=== PATIENT | female | born 1960 | race Caucasian/White ===

== ENCOUNTER 2023-09-19 09:59 | Outpatient (OUT) | payer OTHER, SELFPAY ==
--- NOTE | 2023-09-19 10:06 | MM_ITS ---
Patient Name: ORTEGA BACON MR#: [id number] : 1960 Exam Date: 09/19/2023 Ordering Doctor: DR DR OWENS RAD[facility]OLOG[facility] REPORT PROCEDURE: MM TOMOSYNTHESIS SCREENING BI COMPARISON: MG MAMM SCREEN 3D NORBERTO CAD, 05/24/2021. MG MAMM SCREEN 3D NORBERTO CAD, 07/17/2022. INDICATIONS: Screening Calculator Name NCI Breast Cancer Risk Assessment Tool 5 Year Breast Cancer Risk 4.40% Lifetime Breast Cancer Risk 19.60% Personal Breast Cancer No Personal Ovarian Cancer No Treatments None Family Cancers Mother with breast cancer at age 83. LOCATION: [facility] BREAST COMPOSITION: Heterogeneously dense,which may obscure small masses. FINDINGS: DIAGNOSTIC CATEGORY 2--BENIGN FINDING: Scattered benign-appearing calcifications are present. Scattered benign-appearing lymph nodes are present. RIGHT BREAST: No significant suspicious finding. LEFT BREAST: No significant suspicious finding. RECOMMENDATIONS: ROUTINE MAMMOGRAM AND CLINICAL EVALUATION IN 12 MONTHS. PLEASE NOTE: A NORMAL MAMMOGRAM DOES NOT EXCLUDE THE POSSIBILITY OF BREAST CANCER. A CLINICALLY SUSPICIOUS PALPABLE LUMP SHOULD BE BIOPSIED. Dictated by: Boyd Dubon MD on 09/19/2023 at 12:23 Approved by: Boyd Dubon MD on 09/19/2023 at 12:24
== END 2023-09-19 10:00 | disposition home or self-care (01) ==
LOC: MAMMO 09:59
DX: Z12.31 Encounter for screening mammogram for malignant neoplasm of breast (principal); Z80.3 Family history of malignant neoplasm of breast
CPT/HCPCS: 77063; 77067

== ENCOUNTER 2024-09-24 12:43 | Outpatient (OUT) | payer OTHER, SELFPAY ==
--- NOTE | 2024-09-24 12:46 | MM_ITS ---
Patient Name: ORTEGA BACON MR#: [id number] : 1960 Exam Date: 09/24/2024 Ordering Doctor: DR DR OWENS RADIOLOGY REPORT PROCEDURE: MM TOMOSYNTHESIS SCREENING BI COMPARISON: MM TOMOSYNTHESIS SCREENING BI, 09/19/2023. MG MAMM SCREEN 3D NORBERTO CAD, 07/17/2022. MG MAMM SCREEN 3D NORBERTO CAD, 05/24/2021. MG MAMM SCREEN NORBERTO W CAD, 05/20/2020. INDICATIONS: Screening Calculator Name NCI Breast Cancer Risk Assessment Tool 5 Year Breast Cancer Risk 4.50% Lifetime Breast Cancer Risk 19.00% Personal Breast Cancer No Personal Ovarian Cancer No Treatments None Family Cancers Mother with breast cancer at age 83. LOCATION: [facility] BREAST COMPOSITION: The breasts are heterogeneously dense,which may obscure small masses. FINDINGS: RIGHT BREAST: No significant suspicious finding. LEFT BREAST: No significant suspicious finding. DIAGNOSTIC CATEGORY 1--NEGATIVE. RECOMMENDATIONS: ROUTINE MAMMOGRAM AND CLINICAL EVALUATION IN 12 MONTHS. PLEASE NOTE: A NORMAL MAMMOGRAM DOES NOT EXCLUDE THE POSSIBILITY OF BREAST CANCER. A CLINICALLY SUSPICIOUS PALPABLE LUMP SHOULD BE BIOPSIED. Dictated by: Flynn Rosa DO on 09/25/2024 at 15:34 Approved by: Flynn Rosa DO on 09/25/2024 at 15:37
== END 2024-09-24 12:44 | disposition home or self-care (01) ==
LOC: MAMMO 12:43
DX: Z12.31 Encounter for screening mammogram for malignant neoplasm of breast (principal); Z80.3 Family history of malignant neoplasm of breast
CPT/HCPCS: 77063; 77067

== ENCOUNTER 2025-05-04 16:21 | Emergency (ER) | payer OTHER, SELFPAY ==
[2025-05-04 16:38] VITALS: BP 154/85; PULSE 64; TEMP 36.5; O2SAT 100; BMI 28.0
--- NOTE | 2025-05-04 16:57 | PC.NURSE ---
PT C/O ACUTE ON CHRONIC BACK PAIN. PT STATES NOTHING HELPS.PT HAS TRIED BIOFREEZE AND TYLENOL BUT HAS NOT TAKEN ANYTHING IN 3 DAYS. PT HAS STRONG STEADY GAIT TO ROOM 4
--- OUTSIDE RECORDS SUMMARY | 2025-05-04 17:09 | XMS_ITS | Clinical Summary ---
Author Organization [facility] Address [address] [place] [address] Care Team Providers Care Chalker Soles Name Role Phone Imelda Lyons MD Primary Care Provider + [phone] Allergies No known active allergies Medications MedicationSigDispense QuantityRefillsLast FilledStart DateEnd DateStatus eletriptan (Relpax) 20 MG tablet Take 20 mg by mouth01/04/2024ctive PARoxetine (Paxil) 20 MG tablet Take 20 mg by mouth01/23/2024ctive omeprazole (PriLOSEC) [address] capsule Take 20 mg by mouth in the morning. Take before meals. Do not crush or chew.. Active Active Problems ProblemNoted DateDiagnosed DateColon cancer ijpoajunm79/05/2024Gastroesophageal reflux vanevyq4105/06/2024 Family History Medical HistoryRelationNameCommentsAneurysmFatherBreast cancerMotherRelationName StatusCommentsBrother 1AliveBrother 2AliveBrother 3AliveFatherDeceasedMother DeceasedSister 1AliveSister 2Alive Social History Tobacco UseTypesPacks/DayYears UsedDateSmoking Tobacco: NeverSmokeless Tobacco: Never Tobacco Cessation:Counseling Given: Not Answered Alcohol UseStandard Drinks/WeekCommentsNever0 (1 standard drink = 0.6 oz pure alcohol)CommentsUnknownSex and Gender InformationValueDate RecordedSex Assigned at BirthNot on fileLegal TdlJydqge48/15/2023 6:33 PM EDTGender Identity Not on fileSexual OrientationNot on file Last Filed Vital Signs Vital SignReadingTime TakenCommentsBlood Qxxbvykb337/8511 2:01 PM EST Pulse--Temperature--Respiratory Rate--Oxygen Saturation--Inhaled Oxygen Concentration--Drdsyr17.1 kg (148 lb)05/06/2024 2:01 PM DYOUebpzx080.9 cm (5' 1 )05/06/2024 2:01 PM ESTBody Mass Index27.9605/06/2024 2:01 PM EST Plan of Treatment Health MaintenanceDue DateLast DoneCommentsCT Jmlhoidadyxu02/01/1962FIT-DNA 1960FIT1960FOBT1960 4998Qgosmbkziabdx41/01/1962MMR Vaccines (1 of 1 - Standard series)1962DTaP/Tdap/Td Vaccines (1 - Tdap)1968Pap Smear 1982Cervical Cancer Owtgcsuwy05/01/1992HPV/Lpdmxx5610/31/1991Mammogram , 12/14/2016, 05/13/2014COVID-19 Vaccine ( season)501/01/2022, 09/13/2020, 08/23/2020Influenza Vaccine (#1) /, 04/01/2022, 05/09/2021, Additional history exists Eucftuowini84/16/203501/olorectal Cancer Tqnvmjqgs67/16/2035HIB Vaccines Aged OutNo longer eligible based on patient's age to complete this topicHPV VaccinesAged OutNo longer eligible based on patient's age to complete this topic Hepatitis A VaccinesAged OutNo longer eligible based on patient's age to complete this topicHepatitis B VaccinesAged OutNo longer eligible based on patient's age to complete this topicIPV VaccinesAged OutNo longer eligible based on patient's age to complete this topicMeningococcal B VaccineAged OutNo longer eligible based on patient's age to complete this topicMeningococcal VaccineAged OutNo longer eligible based on patient's age to complete this topicPneumococcal Vaccine: Pediatrics (0 to 5 Years) and At-Risk Patients (6 to 64 Years)Aged Out No longer eligible based on patient's age to complete this topicRotavirus VaccinesAged OutNo longer eligible based on patient's age to complete this topic Procedures Procedure NamePriorityDate/TimeAssociated DiagnosisCommentsCOLONOSCOPYRoutine 07/17/2024 10:07 AM ESTfrom Last 3 Months or Most Recently Relevant to Health Maintenance Results * Colonoscopy (07/17/2024 10:07 AM EST)Anatomical RegionLateralityModality Endoscopy Narrative Authorizing ProviderResult TypeResult StatusAlbert Yoshi Peres MDENDOSCOPY PROCEDURE ORDERABLESFinal Result from Last 3 Months or Most Recently Relevant to Health Maintenance Insurance * Guarantor: Maryam Rizzo TypeRelation to PatientDate of BirthPhone Billing AddressPersonal/RpiknsHzva43/01/1961 [address] [address] Care Teams Team MemberRelationshipSpecialtyStart DateEnd Date Imelda Lyons MD [address] [place] [address] PCP - GeneralFamily Medicine03/17/24
--- NOTE | 2025-05-04 17:27 | XR_ITS ---
[address] [address] Patient Name: ORTEGA BACON MRN: [facility]:[id number] date: 1960 Sex: F Assigned Patient Location: ED.MAIN Current Patient Location: ED.MAIN Accession/Order Number: [id number] Exam Date: 05/04/2025 17:47 Report Date: 05/04/2025 18:44 At the request of: KIRK CRAIG Procedure: XR lumbar spine 2-3V 2 views lumbar spine HISTORY: Back pain with leg spasms for 3 days Adequate vertebral heights and disc spaces. Small anterior endplate spurs throughout. Lower lumbar facet degeneration. No acute fracture. Mild straightening. XR/XR lumbar spine 2-3V IMPRESSION: Lower lumbar facet degeneration. Impression dictated by: Flynn Rosa M.D. 05/04/2025 6:44 PM Dictation Location[facility] Electronically authenticated by: [id number] Y Date: 05/04/2025 18:44
[2025-05-04] MEDS: LIDOCAINE 5% PATCH 1 PATCH TOPICAL (17:39)
[2025-05-04] MEDS: KETOROLAC TROMETHAMINE 30 MG/ML VIAL IM (17:39)
--- NOTE | 2025-05-04 17:56 | ED.GENADUL1 ---
HPI HPI - General Adult General Chief complaint: Back Pain/Injury Stated complaint: PAIN IN BACK AND LEGS Time Seen by Provider: 05/04/25 17:10 Source: patient Mode of arrival: walk-in Limitations: no limitations History of Present Illness HPI narrative: Patient is a 64-year-old that presents to the emergency department with complaints of a few weeks of low back pain that is radiating into her bilateral legs from her buttock to her anterior thighs down to her shins, left greater than right. She reports the pain has increased in the last 3 to 4 days prompting her to come in for evaluation. The pain is described as a throbbing/vibrating. She has been taking Tylenol which somewhat helps. She denies any trauma or falls. 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 She denies any saddle anesthesia, bowel or bladder incontinence, leg weakness or numbness. Related Data Home Medications ?Medication ?Instructions ?Recorded ?Confirmed eletriptan 20 mg tablet See Rx Instructions PO .COMPLEX 05/04/25 05/04/25 omeprazole 20 mg capsule,delayed 20 mg PO DAILY 05/04/25 05/04/25 release paroxetine HCl 20 mg tablet (Paxil) 10 mg PO DAILY 05/04/25 05/04/25 Previous Rx's ?Medication ?Instructions ?Recorded cyclobenzaprine 5 mg tablet 5 mg PO Q8H PRN muscle spasm #14 05/04/25 tabs methylprednisolone 4 mg tablets in 4 mg PO DAILY #21 ea 05/04/25 a dose pack (Medrol (Jerome)) Allergies Allergy/AdvReac Type Severity Reaction Status Date / Time No Known Drug Allergies Allergy Verified 05/04/25 16:41 Opioid HPI Opioid Management Most Recent Opioid Data: Last Pain Scale 10 05/04/25, 16:38 Review of Systems ROS Status of ROS 10 or more systems reviewed and unremarkable except as noted in history and below PFSH PFSH Social History Little interest or pleasure in doing things: not at all Feeling down, depressed, or hopeless: not at all Exam Narrative Exam Narrative: General: No distress, age-appropriate Skin: Warm, dry, no pallor. No rash. Head: Normocephalic, atraumatic. Neck: Supple, non-tender. Eye: Pupils are equal, round and EOMI. No scleral icterus. Cardiovascular: Regular Rate and Rhythm without murmur, gallop or rub. Respiratory: No accessory muscle use or respiratory distress. Lungs are clear to auscultation, no wheezing, rales or rhonchi Back: No midline thoracic vertebral tenderness. Midline lumbar tenderness with palpation, left SI joint TTP. Musculoskeletal: Full ROM of all extremities, no calf or popliteal tenderness. No bilateral lower leg swelling, no erythema. 5/5 strength bilateral lower extremities. Negative straight leg raise bilaterally. Negative clonus bilaterally. Sensation intact symmetrically with light touch distally bilateral lower extremities. Neurological: A&O x4. No cranial nerve dysfunction observed. No truncal ataxia. Moves all extremities. Sensation intact. Psychiatric: Cooperative and interactive. Normal mood and affect. Constitutional Vital Signs, click to edit/add: Last Vital Signs Temp 97.7 F 05/04/25 16:38 Pulse 64 05/04/25 16:38 Resp 16 05/04/25 16:38 BP 154/85 H 05/04/25 16:38 Pulse Ox 100 05/04/25 16:38 O2 Del Method Room Air 05/04/25 16:38 Course Vital Signs Vital signs: Vital Signs Temperature 97.7 F 05/04/25 16:38 Pulse Rate 64 05/04/25 16:38 Respiratory Rate 16 05/04/25 16:38 Blood Pressure 154/85 H 05/04/25 16:38 Pulse Oximetry 100 05/04/25 16:38 Oxygen Delivery Method Room Air 05/04/25 16:38 Temperature 97.7 F 05/04/25 16:38 Pulse Rate 64 05/04/25 16:38 Respiratory Rate 16 05/04/25 16:38 Blood Pressure 154/85 H 05/04/25 16:38 Pulse Oximetry 100 05/04/25 16:38 Oxygen Delivery Method Room Air 05/04/25 16:38 Medical Decision Making MDM Narrative Medical decision making narrative: This is a 64-year-old female that presents with complaints of a few weeks of low back pain that radiates into her bilateral lower extremities, left greater than right. The pain is described as throbbing/vibrating and radiates into her bilateral buttocks to her anterior thighs and ends at her shins. She denies any trauma and has been taking Tylenol for pain. On arrival patient appears comfortable, sitting up in the exam bed. Vitals are hemodynamically stable. No red flags on exam, 5/5 strength bilateral lower extremities. Sensation intact distally with light touch and is symmetric. Pain is in an L4-5 dermatome pattern. Cauda equina unlikely as patient denies bowel or bladder incontinence, saddle anesthesia, lower extremity weakness or numbness. X-ray lumbar spine ordered. 30 mg IM Toradol, lidocaine patch applied. Patient did drive herself and declines muscle relaxer. Ultrasound lower extremity considered but not indicated as patient lacks any risk factors for DVT, she denied immobility or recent hospitalization, recent surgery, recent trauma, smoking, use of oral contraceptives or hormones, history of DVT/PE, history of cancer or signs/symptoms of this on exam. X-ray lumbar spine reviewed and is negative for fracture. Degenerative changes noted. Per my read there is slight anterolisthesis of L4 on 5. On reevaluation patient's pain is more controlled with medication given. I discussed results of her x-ray and plan for follow-up. I did prescribe her a Medrol Dosepak, Flexeril, and she will continue to take Tylenol and get lidocaine patches OTC. She will follow-up with her PCP if she continues to have persistent pain. No signs of cauda equina present. Likely diagnosis is lumbar radiculopathy. I did discuss if the pain in the legs is worsening or there is a sudden change in the nature of symptoms to return to the ED for further investigation. Signs/symptoms of cauda equina also discussed which would also prompt return to ED, or any worsening or new symptoms.Patient was discharged in stable condition, pain controlled, with plan for follow-up with PCP. Differential Diagnosis Differential Diagnosis: Lumbar compression fracture, lumbar radiculopathy, cauda equina Imaging Data Lumbar spine x-ray: Attestation: I have reviewed the pertinent imaging results. Radiologist's impression: ITS Impressions Lumbar Spine X-Ray 05/04/25 17:27 IMPRESSION: Lower lumbar facet degeneration. Impression dictated by: Flynn Rosa M.D. 05/04/2025 6:44 PM Dictation Location: [place] [address] Electronically authenticated by: [id number] Y Date: 05/04/2025 18:44 Discharge Plan Discharge Chief Complaint: Back Pain/Injury Clinical Impression: Lumbar radiculopathy Patient Disposition: Home, Self-Care Time of Disposition Decision: 18:50 Condition: Good Mode of Transportation: Private Vehicle Prescriptions / Home Meds: New methylprednisolone [Medrol (Jerome)] 4 mg tablets,dose pack 4 mg PO DAILY Qty: 21 0RF cyclobenzaprine 5 mg tablet 5 mg PO Q8H PRN (Reason: muscle spasm) Qty: 14 0RF No Action omeprazole 20 mg capsule,delayed release(DR/EC) 20 mg PO DAILY paroxetine HCl [Paxil] 20 mg tablet 10 mg PO DAILY eletriptan 20 mg tablet See Rx Instructions .ROUTE .COMPLEX Rx Instructions: take 1 tab at onset of headache; if no relief may repeat 1 tab after at least 2 hrs; max = 4 tabs/24 hr Print Language: French Instructions: Lumbar Radiculopathy (ED), Lower Back Exercises (ED) Referrals: DR GRACIELA [Primary Care Provider, Family Practice] - 1 week Discharge Date/Time: 05/04/25 18:59
[2025-05-04] MEDS: TIZANIDINE HCL 4 MG TABLET PO (18:57)
== END 2025-05-04 18:59 | disposition home or self-care (01) ==
PROVIDERS: Emergency Provider Emergency Medicine
DX: M54.16 Radiculopathy, lumbar region (principal)
CPT/HCPCS: 72100; 96372; 99284; J1885